=== PATIENT | female | born 1995 | race Two or more races ===

== ENCOUNTER 2020-09-14 14:05 | Emergency (ER) | payer BC, OTHER ==
[~2020-09-14] VITALS: Ht 157.5 cm; Wt 48.5 kg
== END 2020-09-14 14:49 | disposition home or self-care (01) ==
LOC: ER 14:05
DX: S90.414A Abrasion, right lesser toe(s), initial encounter (principal); W45.0XXA Nail entering through skin, initial encounter; Y93.01 Activity, walking, marching and hiking; Y92.832 Beach as the place of occurrence of the external cause; Y99.8 Other external cause status